=== PATIENT | female | born 1960 | race Caucasian/White ===

== ENCOUNTER 2017-04-11 10:47 | Observation (INO) | payer OTHER ==
[~2017-04-11] VITALS: Ht 152.4 cm; Wt 100.0 kg
[~2017-04-11 10:47] MED LIST: AMLODIPINE BESY10 MG PO; ASPIRIN81 MG PO; ASTEPRO205.5 MCG/; BENAZEPRIL-HCT1 EAC2 PO; CARVEDILOL25 MG PO; CETIRIZINE HCL10 MG PO; CLONIDINE HCL0.1 MG PO; DIAZEPAM5 MG PO; FLONASE 0.05% N16 GM; FUROSEMIDE40 MG PO; GABAPENTIN400 MG PO; HYDROCODON-ACE1 EAC6 PO; IBUPROFEN800 MG PO; K-DUR20 MEQ PO; LANTUS100 UNIT/1 SQ; METFORMIN HCL500 MG PO; METOCLOPRAMIDE10 MG PO; MONTELUKAST SOD10 MG PO; ONDANSETRON HCL4 MG PO; PRILOSEC20 MG PO; ROBAXIN-750750 MG PO; SIMVASTATIN20 MG PO; TESSALON PERLE100 MG PO; ZITHROMAX250 MG PO; [UNRECOGNIZED DRUG - OTHER] MC
[2017-04-12 07:07] LABS: BASO % 0.6 % (0.1-1.2); EOS # 0.6 10_X3_uL (0.0-0.4); EOS % 9.3 % (0.7-5.8); GRAN # 2.8 10_X3_uL (1.6-6.1); HEMOGLOBIN 11.4 g/dL (11.2-15.7); LYMPH # 2.8 10_X3_uL (1.2-3.7); LYMPH % 42.1 % (19.3-51.7); MEAN CORPUSCULAR HEMOGLOBIN 29.1 pg (27.0-33.0); MEAN CORPUSCULAR HGB CONC 33.5 g/dL (32.0-36.0); MEAN CORPUSCULAR VOLUME 86.7 fL (79-95); MEAN PLATELET VOLUME 10.8 fl (7.5-11.5); MONO # 0.4 10_X3_uL (0.2-0.9); PLATELET COUNT 207 x10_3/uL (182-369); RED BLOOD COUNT 3.92 x10_6/uL (3.9-5.2); RED CELL DISTRIBUTION WIDTH 12.3 % (11.7-14.4); WHITE BLOOD COUNT 6.7 x10_3/uL (4.0-10.0)
[2017-04-12 07:18] LABS: AHDL CHOLESTEROL 37 mg/dL (>40); BLOOD UREA NITROGEN 19 mg/dL (7-18); CALCIUM 8.7 mg/dL (8.7-10.7); CARBON DIOXIDE 26 mmol/L (21-32); CHOLESTEROL 265 mg/dL (0-200); CREATININE 0.6 mg/dL (0.6-1.3); GLUCOSE,RANDOM 217 mg/dL (70-99); LDL CHOLESTEROL 196 mg/dL (0-99); POTASSIUM 3.8 mmol/L (3.5-5.1); SODIUM 139 mmol/L (136-145); TRIGLYCERIDES 294 mg/dL (30-200)
[2017-04-13 07:13] LABS: HEMATOCRIT 30.8 % (34-45); HEMOGLOBIN 10.8 g/dL (11.2-15.7); MEAN CORPUSCULAR HEMOGLOBIN 29.7 pg (27.0-33.0); MEAN CORPUSCULAR HGB CONC 35.1 g/dL (32.0-36.0); MEAN CORPUSCULAR VOLUME 84.6 fL (79-95); MEAN PLATELET VOLUME 10.7 fl (7.5-11.5); RED BLOOD COUNT 3.64 x10_6/uL (3.9-5.2); RED CELL DISTRIBUTION WIDTH 12.6 % (11.7-14.4); WHITE BLOOD COUNT 6.3 x10_3/uL (4.0-10.0)
[2017-04-13 07:30] LABS: BLOOD UREA NITROGEN 21 mg/dL (7-18); CALCIUM 8.4 mg/dL (8.7-10.7); CARBON DIOXIDE 22 mmol/L (21-32); CREATININE 0.7 mg/dL (0.6-1.3); GLUCOSE,RANDOM 393 mg/dL (70-99); SODIUM 137 mmol/L (136-145)
== END 2017-04-13 16:45 | disposition home or self-care (01) ==
LOC: ER 10:47 → MS 14:09 → UNDODEPER 04-13 12:27 → MS 04-13 16:45
PROVIDERS: ADMIT Family Medicine
DX: E11.65 Type 2 diabetes mellitus with hyperglycemia (principal); I10 Essential (primary) hypertension; Z86.14 Personal history of Methicillin resistant Staphylococcus aureus infection; Z98.890 Other specified postprocedural states; Z90.49 Acquired absence of other specified parts of digestive tract; J44.9 Chronic obstructive pulmonary disease, unspecified; M54.9 Dorsalgia, unspecified; Z88.5 Allergy status to narcotic agent; Z88.1 Allergy status to other antibiotic agents; Z79.899 Other long term (current) drug therapy; Z79.4 Long term (current) use of insulin; Z79.82 Long term (current) use of aspirin
CPT/HCPCS: 36415; 80048; 80061; 82962; 85025; 96360; 96361; 96372; 99070; 99285; G0378